=== PATIENT | male | born 1960 | race Caucasian/White ===

== ENCOUNTER → 2021-06-27 15:52 | Outpatient (CLI) | payer OTHER, SELFPAY ==
[2021-06-27 16:57] LABS: COVID19 -Nasal RAPID Negative (Negative)
== END ==
PROVIDERS: PCP Internal Medicine; Referring Provider Internal Medicine; Visit Provider Internal Medicine
DX: Z20.822 Contact with and (suspected) exposure to COVID-19 (principal)
CPT/HCPCS: 87635; C9803

== ENCOUNTER → 2021-06-28 13:43 | Outpatient (CLI) | payer OTHER, SELFPAY ==
--- NOTE | 2021-07-04 08:02 | PM.PFT.1 ---
Pulmonary Function Test Referral & Results Date Patient Seen: 06/28/21 Requesting provider: Cristi Parekh Results: The spirometry demonstrates an FVC of 3.91 L which is 89% of predicted. The FEV1 was measured at 2.95 L which is 90% of predicted. The FEV1/FVC ratio was 75 which is 100% of predicted. Following the administration of bronchodilator there was no notable change. Lung volumes show an SVC of 4.13 L which is 93% of predicted. The diffusing capacity was measured at 27.66 which is 93% of predicted. The maximum voluntary ventilation was normal Interpretation: This study demonstrates normal pulmonary function
== END ==
PROVIDERS: PCP Internal Medicine; Referring Provider Internal Medicine; Visit Provider Internal Medicine
DX: Z77.090 Contact with and (suspected) exposure to asbestos (principal); Z87.891 Personal history of nicotine dependence
CPT/HCPCS: 94060; 94726; 94729

== ENCOUNTER → 2021-07-03 16:04 | Outpatient (CLI) | payer OTHER, SELFPAY ==
[2021-07-03 16:38] LABS: COVID19 -Nasal RAPID Negative (Negative)
== END ==
PROVIDERS: PCP Internal Medicine; Referring Provider Nurse Practitioner Family; Visit Provider Nurse Practitioner Family
DX: Z20.822 Contact with and (suspected) exposure to COVID-19 (principal)
CPT/HCPCS: 87635

== ENCOUNTER → 2021-07-05 14:30 | Outpatient (CLI) | payer OTHER, SELFPAY ==
--- NOTE | 2021-07-05 19:13 | DI.NM.S_ITS ---
DATE OF SERVICE: 07/05/2021 PROCEDURE: Exercise stress test. INDICATION: Shortness of breath, palpitation, paroxysmal AFib, hypertension. CARDIAC STRESS: The patient underwent exercise stress test under the supervision of an attending staff. The patient walked on Shola protocol for 9 minutes and 37 seconds, achieved maximum heart rate of 165, which was 104 percent of target heart rate. Baseline blood pressure 130/80 mmHg. Peak blood pressure 200/90 mmHg. The patient achieved 10.1 METs of workload. Oxygen saturation remained 94 percent. Baseline rhythm was sinus. During stress, no convincing ischemic changes seen. In recovery, the patient had some PVCs and PACs without any obvious atrial fibrillation or ventricular tachycardia. No chest pain. Had some shortness of breath. CONCLUSION: 1. Exercise stress test is negative for inducible ischemia. 2. Normal hemodynamic response. 3. Good exercise capacity. 4. Some premature ventricular contractions and premature atrial contractions in recovery without any complex supraventricular ventricular arrhythmias. Overall low-risk exercise stress test. Miguel Angel Hilton - Tez/montse doc#: [id number]/job#: [id number] dd: 07/05/2021 16:40:00 dt: 07/05/2021 18:22:00 DICTATING /COPIES TO: Toma Capps MD COPIES MNE: IRENE;
== END ==
PROVIDERS: PCP Internal Medicine; Referring Provider Internal Medicine; Visit Provider Internal Medicine
DX: I48.0 Paroxysmal atrial fibrillation (principal); R06.02 Shortness of breath; I10 Essential (primary) hypertension
CPT/HCPCS: 93017

== ENCOUNTER → 2023-06-13 10:13 | Outpatient (CLI) | payer OTHER, SELFPAY | PROVIDERS: PCP Nurse Practitioner Family; Referring Provider Nurse Practitioner Family; Visit Provider Nurse Practitioner Family | DX: J44.9 Chronic obstructive pulmonary disease, unspecified (principal); Z87.891 Personal history of nicotine dependence | CPT/HCPCS: 94060 ==